=== PATIENT | female | born 2005 | race African-American/Black ===

== ENCOUNTER 2025-06-14 05:55 | Emergency (ER) | payer MEDICARE ==
[~2025-06-14] VITALS: Ht 165.1 cm; Wt 80.3 kg
[2025-06-14 06:03] VITALS: BP 104/65
[2025-06-14 06:32] LABS: PLATELET COUNT (AUTO) 426 K/uL (179-408); RED BLOOD CELL COUNT(AUTO) 4.77 MIL/uL (3.63-4.92); RED CELL DISTRIBUTION WIDTH 13.6 % (12.3-17.7); WHITE BLOOD COUNT (AUTO) 11.3 K/uL (3.8-11.8)
[2025-06-14 06:45] LABS: ASPARTATE AMINOTRANSFERASE 16 U/L (15-37); CREATININE 0.9 mg/dL (0.6-1.3); SODIUM SERUM 143 mmol/L (136-145); TOTAL PROTEIN, SERUM 8.1 g/dL (6.4-8.2); UREA NITROGEN, BLOOD 12 mg/dL (7-18)
[2025-06-14 07:04] LABS: *BILIRUBIN,URIN NEGATIVE (NEGATIVE); *BLOOD, URINE NEGATIVE (NEGATIVE); *CLARITY,URINE CLEAR (CLEAR); *COLOR,URINE YELLOW (YELLOW); *KETONES,URINE NEGATIVE (NEGATIVE); *PROTEIN,URINE NEGATIVE (NEGATIVE); *UROBILINOGEN,URINE 0.2 E.U./dl (NORMAL); LEUKOCYTE ESTERASE ,URINE NEGATIVE (NEGATIVE); NITRITE, URINE NEGATIVE (NEGATIVE); UGLUCOSE NEGATIVE (NEGATIVE)
[2025-06-14 07:13] LABS: *URINE HCG, QUAL NEGATIVE (NEGATIVE)
[2025-06-14] MEDS ORDERED: METR-147 PO (08:27)
[2025-06-14] MEDS ORDERED: BISM262T18 PO (08:27)
[2025-06-14] MEDS ORDERED: OMEP20TA20 PO (08:27)
[2025-06-14] MEDS ORDERED: TETR-57 PO (08:27)
[2025-06-14 08:34] VITALS: BP 106/75; TEMP 98.2; O2SAT 97
== END 2025-06-14 08:35 | disposition home or self-care (01) ==
LOC: EDBD 05:55 → ER 06:12
DX: K29.00 Acute gastritis without bleeding (principal); J45.909 Unspecified asthma, uncomplicated; Z88.7 Allergy status to serum and vaccine
CPT/HCPCS: 36415; 83690; 84703; 85025; A4606; A4663